=== PATIENT | female | born 1985 | race Caucasian/White ===

== ENCOUNTER 2019-03-27 15:22 | Emergency (ER) | payer MEDICAID, SELFPAY ==
[~2019-03-27] VITALS: Ht 182.9 cm; Wt 90.0 kg
[2019-03-27 16:56] LABS: BASOPHILS # (AUTO) 0.04 x10^3/uL (0-0.1); BASOPHILS % (AUTO) 1 % (0-1); EOSINOPHILS # (AUTO) 0.07 x10^3/uL (0-0.4); EOSINOPHILS % (AUTO) 1 % (1-7); LYMPHOCYTES # (AUTO) 1.93 x10^3/uL (1-3.4); LYMPHOCYTES % (AUTO) 21 % (22-44); MD NO; MEAN CORPUSCULAR HEMOGLOBIN 30.4 pg (27.0-34.8); MEAN CORPUSCULAR HGB CONC 32.8 g/dL (32.4-35.8); MEAN CORPUSCULAR VOLUME 92.5 fL (80-100); MEAN PLATELET VOLUME 9.3 fL (7.4-10.4); MONOCYTES # (AUTO) 0.46 x10^3/uL (0.2-0.8); MONOCYTES % (AUTO) 5 % (2-9); NEUTROPHILS # (AUTO) 6.69 x10^3/uL (1.8-6.8); NEUTROPHILS % (AUTO) 73 % (42-75); PLATELET COUNT 266 x10^3/uL (130-400); RED CELL DISTRIBUTION WIDTH 12.8 % (9.6-15.2)
[2019-03-27 16:58] LABS: ALBUMIN 3.4 g/dL (3.4-5.0); ANION GAP 6 mmol/L (5-15); CALCIUM 8.8 mg/dL (8.5-10.1); CHLORIDE 109 mmol/L (98-107)
[2019-03-27 17:03] LABS: ALANINE AMINOTRANSFERASE 24 U/L (12-78); ALKALINE PHOSPHATASE 91 U/L (45-117); BILIRUBIN,TOTAL 0.7 mg/dL (0.2-1.0); CREATININE 0.68 mg/dL (0.55-1.02); TOTAL PROTEIN 7.9 g/dL (6.4-8.2)
--- NOTE | 2019-03-27 18:33 | NUR ---
billing services manager: Patient to room from lobby at this time.
[2019-03-27] MEDS ORDERED: DIPHENHYDRAMINE 50 MG/ML, 1ML IVPush ONE (19:00)
[2019-03-27] MEDS ORDERED: SODIUM CHLORIDE 0.9% 1,000ML IVBOLUS ONE (19:00)
[2019-03-27] MEDS ORDERED: METOCLOPRAMIDE 5 MG/ML, 2ML IVPush ONE (19:00)
[2019-03-27] MEDS ORDERED: SODIUM CHLORIDE FLUSH 10ML SYR IVF ONE (19:00)
[2019-03-27] MEDS ORDERED: MORPHINE SULFATE 4 MG/ML, 1ML IVPush PRN (19:00)
[2019-03-27] MEDS ORDERED: METOCLOPRAMIDE 5 MG/ML, 2ML ONE (19:21)
[2019-03-27] MEDS ORDERED: DIPHENHYDRAMINE 50 MG/ML, 1ML ONE (19:21)
[2019-03-27] MEDS ORDERED: MORPHINE SULFATE 4 MG/ML, 1ML ONE (19:21)
--- NOTE | 2019-03-27 20:50 | NUR ---
pt ambulated to bathroom and back.pt steady on feet.
[2019-03-27 20:52] LABS: MICROSCOPIC NOT IND
--- NOTE | 2019-03-27 20:54 | NUR ---
pt stated "that she is unable to provide a jonah sample at this time"
[2019-03-27 20:55] LABS: CULTURE INDICATED? NO
[2019-03-27 21:55] VITALS: BP 123/74
[2019-03-27] MEDS ORDERED: OMNIPAQUE 350 MG/ML, 100ML BOTTLE ONE (23:45)
== END 2019-03-27 21:57 | disposition home or self-care (01) ==
LOC: ED 21:25
DX: R10.84 Generalized abdominal pain (principal); R19.7 Diarrhea, unspecified; R11.2 Nausea with vomiting, unspecified
CPT/HCPCS: 36415; 74177; 76700; 80053; 81003; 83690; 84703; 85025; 96361; 96374; 96375; 99284; J1200; J2270; J2765; J7030; Q9967